=== PATIENT | female | born 1950 | race African-American/Black ===

== ENCOUNTER 2020-11-18 04:47 | Day surgery (SDC) | payer BC ==
[2020-11-15 09:38] VITALS: BMI 18.3
[2020-11-18] MEDS ORDERED: BUPIVACAINE HCL/PF 0.75% 10 ML VIAL NR ONE ×2 (09:19→09:20)
[2020-11-18] MEDS ORDERED: LIDOCAINE HCL 1% PRESERVATIVE FREE - 30ML VIAL NR ONE (09:25)
[2020-11-18 10:48] VITALS: BP 160/84; PULSE 75; TEMP 97.9
== END 2020-11-18 10:35 | disposition home or self-care (01) ==
LOC: EDSEX → JASU-SURG 04:47
PROVIDERS: ATTEND Pain Medicine Pain Medicine
PROC: BR15YZZ Fluoroscopy of Thoracic Facet Joint(s) using Other Contrast (ICD-10-PCS; 2020-11-18)
PROC: 3E0T3BZ Introduction of Anesthetic Agent into Peripheral Nerves and Plexi, Percutaneous Approach (ICD-10-PCS; principal; 2020-11-18 09:00)
DX: M47.814 Spondylosis without myelopathy or radiculopathy, thoracic region (principal)
CPT/HCPCS: 76000-TC-FY

== ENCOUNTER 2020-12-16 04:24 | Day surgery (SDC) | payer BC ==
[2020-12-14 13:56] VITALS: BMI 18.3
[2020-12-16] MEDS ORDERED: LIDOCAINE HCL/PF 1% SDV 5ML VIAL ONE (07:26)
[2020-12-16] MEDS ORDERED: BUPIVACAINE HCL/PF 0.75% 10 ML VIAL ONE (07:26)
[2020-12-16] MEDS ORDERED: BUPIVACAINE HCL/PF 0.75% 10 ML VIAL NR ONE (09:18)
[2020-12-16] MEDS ORDERED: IOHEXOL 180 MG/1 ML ML IJ ONE (09:18)
[2020-12-16 15:47] VITALS: BP 144/90; PULSE 83; TEMP 97.7
== END 2020-12-16 10:45 | disposition home or self-care (01) ==
LOC: JASU-SURG 04:24
PROVIDERS: ATTEND Pain Medicine Pain Medicine
PROC: BR15YZZ Fluoroscopy of Thoracic Facet Joint(s) using Other Contrast (ICD-10-PCS; 2020-12-16)
PROC: 3E0T3BZ Introduction of Anesthetic Agent into Peripheral Nerves and Plexi, Percutaneous Approach (ICD-10-PCS; principal; 2020-12-16 09:30)
DX: M47.814 Spondylosis without myelopathy or radiculopathy, thoracic region (principal)
CPT/HCPCS: 76000-TC-FY

== ENCOUNTER 2021-03-23 11:17 | Inpatient (IN) | payer BC ==
[2021-03-23] MEDS ORDERED: LACTATED RINGERS SOLUTION 1000 ML INFUS.BAG IV ONE (12:44)
[2021-03-23 13:12] LABS: BASO % 0.6 % (0-2.0); EOS % 1.8 % (0-4.5); HEMATOCRIT 35.8 % (32.4-45.2); HEMOGLOBIN 11.8 GM/dL (10.7-15.3); LYMPH % 23.6 % (8-40); MCH 28.3 pg (25.7-33.7); MCHC 32.8 g/dl (32.0-36.0); MEAN CELL VOLUME 86.2 fl (80-96); MEAN PLT VOLUME 7.6 fl (7.5-11.1); MONO % 7.3 % (3.8-10.2); NEUT % 66.7 % (42.8-82.8); PLATELET COUNT 208 10^3/uL (134-434); RBC 4.15 M/mm3 (3.60-5.2); RDW 14.7 % (11.6-15.6); WHITE BLOOD COUNT 5.6 K/mm3 (4.0-10.0)
[2021-03-23 13:34] LABS: ALBUMIN 3.1 g/dl (3.4-5.0); BLOOD UREA NITROGEN 11.3 mg/dL (7-18)
[2021-03-23 13:37] LABS: CREATININE 0.8 mg/dL (0.55-1.3)
[2021-03-23 13:40] LABS: BILIRUBIN,TOTAL 0.4 mg/dL (0.2-1); TOT PROT 6.5 g/dl (6.4-8.2)
[2021-03-23] MEDS: DEXTROSE 5%-NORMAL SALINE 1,000 ML IV SCH (17:06)
[2021-03-24 04:25] VITALS: BMI 17.5
[2021-03-24 10:44] LABS: BASO % 0.4 % (0-2.0); EOS % 2.3 % (0-4.5); HEMATOCRIT 32.7 % (32.4-45.2); MCH 29.4 pg (25.7-33.7); MCHC 33.7 g/dl (32.0-36.0); MEAN CELL VOLUME 87.3 fl (80-96); MEAN PLT VOLUME 7.9 fl (7.5-11.1); MONO % 6.7 % (3.8-10.2); NEUT % 72.6 % (42.8-82.8); PLATELET COUNT 212 10^3/uL (134-434); RBC 3.75 M/mm3 (3.60-5.2); RDW 14.7 % (11.6-15.6)
[2021-03-24 10:50] LABS: INR 1.05 (0.83-1.09); PROTHROMBIN TIME (PATIENT) 12.7 SEC (9.7-13.0)
[2021-03-24 11:22] LABS: ALBUMIN 2.6 g/dl (3.4-5.0); BLOOD UREA NITROGEN 7.1 mg/dL (7-18); CALCIUM 8.5 mg/dL (8.5-10.1); MAGNESIUM 2.2 mg/dL (1.8-2.4)
[2021-03-24 11:25] LABS: CREATININE 0.7 mg/dL (0.55-1.3); PHOSPHOROUS 3.3 mg/dL (2.5-4.9)
[2021-03-24 11:26] LABS: BILIRUBIN,TOTAL 0.7 mg/dL (0.2-1); TOT PROT 5.7 g/dl (6.4-8.2)
[2021-03-24] MEDS: DEXTROSE 5%-NORMAL SALINE 1,000 ML IV SCH (15:32)
[2021-03-24 18:36] VITALS: BP 129/88; PULSE 72; TEMP 97.4
[2021-03-25] MEDS ORDERED: ENOXAPARIN NA (PORCINE) 30 MG/0.3 ML DISP.SYRIN SQ SCH (10:00)
== END 2021-03-24 17:20 | disposition short-term general hospital (02) | DRG 381 ==
LOC: JER 11:17 → JERBED 14:12 → EDSEX 14:12 → J5S 22:40
PROVIDERS: ADMIT Internal Medicine; ATTEND Internal Medicine
PROC: 0DB58ZX Excision of Esophagus, Via Natural or Artificial Opening Endoscopic, Diagnostic (ICD-10-PCS; principal; 2021-03-24 12:40)
DX: K22.70 Barrett's esophagus without dysplasia (principal); R64 Cachexia; Z68.1 Body mass index [BMI] 19.9 or less, adult; K22.2 Esophageal obstruction; J45.909 Unspecified asthma, uncomplicated; R13.10 Dysphagia, unspecified; K44.9 Diaphragmatic hernia without obstruction or gangrene; K22.0 Achalasia of cardia
CPT/HCPCS: 36415; 71045-TC-FY; 80048; 80053; 83690; 83735; 84100; 84443; 85025; 85610; 85730; 86850; 86900; 86901; 88305-TC; 93005; 93010; 97116-GP; 97162-GP; 99285-25; C9803; U0003; U0005

== ENCOUNTER 2021-08-10 04:47 | Day surgery (SDC) | payer BC ==
[2021-08-09 11:07] VITALS: BMI 15.5
[2021-08-10] MEDS ORDERED: CEFAZOLIN 1 GM/D5W 1 GM/50 ML BAG ONE (13:08)
[2021-08-10] MEDS ORDERED: ceFAZolin SODIUM 1 GM VIAL IVPB ONE (13:13)
[2021-08-10 13:33] VITALS: TEMP 97.7
[2021-08-10 15:05] VITALS: BP 116/72; PULSE 92
== END 2021-08-10 14:35 | disposition home or self-care (01) ==
LOC: JASU-ENDO 04:47
PROVIDERS: ATTEND Internal Medicine Gastroenterology
PROC: 0D748ZZ Dilation of Esophagogastric Junction, Via Natural or Artificial Opening Endoscopic (ICD-10-PCS; 2021-08-10)
PROC: 0DB38ZX Excision of Lower Esophagus, Via Natural or Artificial Opening Endoscopic, Diagnostic (ICD-10-PCS; principal; 2021-08-10 12:45)
DX: K22.2 Esophageal obstruction (principal); K44.9 Diaphragmatic hernia without obstruction or gangrene
CPT/HCPCS: 88305-TC

== ENCOUNTER 2021-08-24 05:00 | Day surgery (SDC) | payer BC ==
[2021-08-22 13:50] VITALS: BMI 16.4
[2021-08-24 09:52] VITALS: TEMP 97.8
[2021-08-24 12:53] VITALS: BP 140/90; PULSE 67
== END 2021-08-24 10:45 | disposition home or self-care (01) ==
LOC: JASU-ENDO 05:00
PROVIDERS: ATTEND Internal Medicine Gastroenterology
PROC: 0DB38ZX Excision of Lower Esophagus, Via Natural or Artificial Opening Endoscopic, Diagnostic (ICD-10-PCS; 2021-08-24)
PROC: 0D738ZZ Dilation of Lower Esophagus, Via Natural or Artificial Opening Endoscopic (ICD-10-PCS; principal; 2021-08-24 09:30)
DX: K22.2 Esophageal obstruction (principal); K21.00 Gastro-esophageal reflux disease with esophagitis, without bleeding
CPT/HCPCS: 88305-TC; 88312-TC

== ENCOUNTER 2021-09-07 04:37 | Day surgery (SDC) | payer BC ==
[2021-09-05 15:45] VITALS: BMI 16.4
[2021-09-07 14:58] VITALS: TEMP 97.3
[2021-09-07 15:39] VITALS: BP 136/75; PULSE 79
== END 2021-09-07 16:00 | disposition home or self-care (01) ==
LOC: JASU-ENDO 04:37
PROVIDERS: ATTEND Internal Medicine Gastroenterology
PROC: 0D748ZZ Dilation of Esophagogastric Junction, Via Natural or Artificial Opening Endoscopic (ICD-10-PCS; principal; 2021-09-07 13:15)
DX: K22.2 Esophageal obstruction (principal); K44.9 Diaphragmatic hernia without obstruction or gangrene

== ENCOUNTER 2021-09-21 05:03 | Day surgery (SDC) | payer BC ==
[2021-09-21] MEDS ORDERED: LIDOCAINE VISCOUS 2% ORAL/TOP 15 ML UNIT-DOSE CUP ONE (11:30)
[2021-09-21 12:50] VITALS: BMI 18.5
[2021-09-21 13:37] VITALS: TEMP 97.3
[2021-09-21 14:17] VITALS: BP 154/77; PULSE 64
== END 2021-09-21 14:32 | disposition home or self-care (01) ==
LOC: JASU-ENDO 05:03
PROVIDERS: ATTEND Internal Medicine Gastroenterology
PROC: 0D728ZZ Dilation of Middle Esophagus, Via Natural or Artificial Opening Endoscopic (ICD-10-PCS; principal; 2021-09-21 13:30)
DX: K22.2 Esophageal obstruction (principal); K44.9 Diaphragmatic hernia without obstruction or gangrene

== ENCOUNTER 2021-10-19 04:34 | Day surgery (SDC) | payer BC ==
[2021-10-16 16:26] VITALS: BMI 18.5
[2021-10-19 13:08] VITALS: TEMP 97.5
[2021-10-19 14:03] VITALS: BP 152/83; PULSE 70
== END 2021-10-19 14:34 | disposition home or self-care (01) ==
LOC: JASU-ENDO 04:34
PROVIDERS: ATTEND Internal Medicine Gastroenterology
PROC: 0DB28ZX Excision of Middle Esophagus, Via Natural or Artificial Opening Endoscopic, Diagnostic (ICD-10-PCS; 2021-10-19)
PROC: 0D728ZZ Dilation of Middle Esophagus, Via Natural or Artificial Opening Endoscopic (ICD-10-PCS; principal; 2021-10-19 12:30)
DX: K22.2 Esophageal obstruction (principal); K22.10 Ulcer of esophagus without bleeding; K44.9 Diaphragmatic hernia without obstruction or gangrene
CPT/HCPCS: 88305-TC; 88312-TC

== ENCOUNTER 2021-12-21 04:22 | Day surgery (SDC) | payer BC ==
[2021-12-18 12:48] VITALS: BMI 18.5
[2021-12-21 10:17] VITALS: TEMP 98
[2021-12-21 11:05] VITALS: BP 140/84; PULSE 60
== END 2021-12-21 11:25 | disposition home or self-care (01) ==
LOC: JASU-ENDO 04:22
PROVIDERS: ATTEND Internal Medicine Gastroenterology
PROC: 0D758ZZ Dilation of Esophagus, Via Natural or Artificial Opening Endoscopic (ICD-10-PCS; principal; 2021-12-21 09:30)
DX: K22.2 Esophageal obstruction (principal); K44.9 Diaphragmatic hernia without obstruction or gangrene

== ENCOUNTER 2023-02-28 04:37 | Day surgery (SDC) | payer BC ==
[2023-02-22 10:18] VITALS: BMI 17.6
[2023-02-28 09:47] VITALS: TEMP 97.5
[2023-02-28 10:14] VITALS: PULSE 67
[2023-02-28 10:38] VITALS: BP 181/96; RESP 18
== END 2023-02-28 10:32 | disposition home or self-care (01) ==
LOC: JASU-ENDO 04:37
PROVIDERS: ATTEND Internal Medicine Gastroenterology
PROC: 0D748DZ Dilation of Esophagogastric Junction with Intraluminal Device, Via Natural or Artificial Opening Endoscopic (ICD-10-PCS; 2023-02-28)
PROC: 0DB48ZX Excision of Esophagogastric Junction, Via Natural or Artificial Opening Endoscopic, Diagnostic (ICD-10-PCS; principal; 2023-02-28 09:00)
DX: K22.2 Esophageal obstruction (principal); K21.00 Gastro-esophageal reflux disease with esophagitis, without bleeding; K44.9 Diaphragmatic hernia without obstruction or gangrene
CPT/HCPCS: 88305-TC

== ENCOUNTER 2024-02-13 04:34 | Day surgery (SDC) | payer BC, OTHER ==
[2024-02-06 14:59] VITALS: BMI 16.6
[2024-02-13 10:35] VITALS: TEMP 98
[2024-02-13 12:10] VITALS: BP 164/92; PULSE 62; RESP 17
== END 2024-02-13 11:34 | disposition home or self-care (01) ==
LOC: JASU-ENDO 04:34
PROVIDERS: ATTEND Internal Medicine Gastroenterology
PROC: 0D738ZZ Dilation of Lower Esophagus, Via Natural or Artificial Opening Endoscopic (ICD-10-PCS; principal; 2024-02-13 09:00)
DX: K22.2 Esophageal obstruction (principal); K22.70 Barrett's esophagus without dysplasia
CPT/HCPCS: 88305-TC; 88312-TC; 88342-TC

== ENCOUNTER 2024-04-02 04:35 | Day surgery (SDC) | payer BC, OTHER ==
[2024-03-26 09:59] VITALS: BMI 17.4
[2024-04-02 12:16] VITALS: TEMP 98.1
[2024-04-02 12:42] VITALS: RESP 16
[2024-04-02 13:11] VITALS: BP 153/97; PULSE 63
== END 2024-04-02 13:27 | disposition home or self-care (01) ==
LOC: JASU-ENDO 04:35
PROVIDERS: ATTEND Internal Medicine Gastroenterology
PROC: 0D758DZ Dilation of Esophagus with Intraluminal Device, Via Natural or Artificial Opening Endoscopic (ICD-10-PCS; principal; 2024-04-02 11:00)
DX: K22.2 Esophageal obstruction (principal)

== ENCOUNTER 2024-04-23 04:54 | Day surgery (SDC) | payer BC, OTHER ==
[2024-04-15 11:40] VITALS: BMI 17.4
[2024-04-23] MEDS: ALBUTEROL SO4 0.083% IH SOL 2.5 MG/3 ML VIAL.NEB. NEB ONE (08:54)
[2024-04-23] MEDS ORDERED: LIDOCAINE VISCOUS 2% ORAL/TOP 15 ML UNIT-DOSE CUP ONE (09:13)
[2024-04-23] MEDS ORDERED: MIDAZOLAM HCL 2 MG/2 ML SINGLE DOSE VIAL ONE (09:13)
[2024-04-23 10:14] VITALS: TEMP 97.7
[2024-04-23 10:35] VITALS: RESP 16
[2024-04-23 11:27] VITALS: BP 143/86; PULSE 70
== END 2024-04-23 11:06 | disposition home or self-care (01) ==
LOC: JASU-ENDO 04:54
PROVIDERS: ATTEND Internal Medicine Gastroenterology
PROC: 0D758DZ Dilation of Esophagus with Intraluminal Device, Via Natural or Artificial Opening Endoscopic (ICD-10-PCS; principal; 2024-04-23 09:00)
DX: K22.2 Esophageal obstruction (principal); R13.10 Dysphagia, unspecified; K22.70 Barrett's esophagus without dysplasia; R63.4 Abnormal weight loss; Z68.1 Body mass index [BMI] 19.9 or less, adult
CPT/HCPCS: 88305-TC; 94640

== ENCOUNTER 2024-05-21 05:47 | Day surgery (SDC) | payer BC, OTHER ==
[2024-05-20 12:02] VITALS: BMI 17.4
[2024-05-21 11:28] VITALS: TEMP 98.1
[2024-05-21 11:33] VITALS: BP 173/90; PULSE 74; RESP 16
== END 2024-05-21 12:20 | disposition home or self-care (01) ==
LOC: JASU-ENDO 05:47
PROVIDERS: ATTEND Internal Medicine Gastroenterology
PROC: 0D758ZZ Dilation of Esophagus, Via Natural or Artificial Opening Endoscopic (ICD-10-PCS; principal; 2024-05-21 10:30)
DX: K22.2 Esophageal obstruction (principal); K44.9 Diaphragmatic hernia without obstruction or gangrene

== ENCOUNTER 2024-09-26 21:05 | Inpatient (IN) | payer BC, OTHER ==
[2024-09-26] MEDS ORDERED: FAMOTIDINE 20 MG/50 ML IVPB 20 MG/50 ML MG IVPB ONE (22:19)
[2024-09-26] MEDS ORDERED: ACETAMINOPHEN INJECTION 100 ML ONE (22:23)
[2024-09-26] MEDS ORDERED: ONDANSETRON 4 MG/2 ML VIAL ONE (22:23)
[2024-09-26] MEDS: ACETAMINOPHEN 500 MG TABLET (FP) PO ONE (22:50)
[2024-09-26] MEDS: ACETAMINOPHEN 1000 MG/100 ML BAG IVPB ONE (22:50)
[2024-09-26] MEDS: ONDANSETRON 4 MG/2 ML VIAL IVPUSH ONE (22:51)
[2024-09-26 22:52] LABS: HEMATOCRIT 40.6 % (34.1-44.9); MCHC 29.6 g/dl (32.2-35.5); MEAN CELL VOLUME 85.3 fl (79.4-94.8); MEAN PLT VOLUME 10.1 fl (9.4-12.3); PLATELET COUNT 235 x10^3/uL (182-369); RDW 14.7 % (12.4-16.6)
[2024-09-26 22:59] LABS: INR 1.05 (0.83-1.09); PROTHROMBIN TIME (PATIENT) 11.6 SEC (9.7-13.0)
[2024-09-26 23:01] LABS: ACTIVATED PTT 26.1 SECONDS (25.2-36.5)
[2024-09-27 00:12] LABS: POTASSIUM 4.2 mmol/L (3.5-5.1)
[2024-09-27 00:15] LABS: ALBUMIN 3.9 g/dl (3.4-5.0); BLOOD UREA NITROGEN 12.2 mg/dL (7-18); CALCIUM 9.9 mg/dL (8.5-10.1)
[2024-09-27 00:18] LABS: CREATININE 0.9 mg/dL (0.55-1.3); PHOSPHOROUS 3.7 mg/dL (2.5-4.9)
[2024-09-27 00:19] LABS: BILIRUBIN,TOTAL 0.7 mg/dL (0.2-1); TOT PROT 7.9 g/dl (6.4-8.2)
[2024-09-27 00:21] LABS: LACTIC ACID 3.7 mmol/L (0.4-2.0)
[2024-09-27 00:23] LABS: N-TERMINAL BNP 95.5 pg/ml (5-450)
[2024-09-27] MEDS: SODIUM CHLORIDE 0.9% 500 ML INFUS.BAG IV ONE ×2 (01:24→04:25)
[2024-09-27] MEDS ORDERED: METOCLOPRAMIDE HCL INJECTION 10 MG/2 ML VIAL ONE (02:25)
[2024-09-27] MEDS: METOCLOPRAMIDE HCL INJECTION 10 MG/2 ML VIAL IVPB ONE (02:28)
[2024-09-27 03:36] LABS: MAGNESIUM 2.1 mg/dL (1.8-2.4)
[2024-09-27 03:52] LABS: LACTIC ACID 3.8 mmol/L (0.4-2.0)
[2024-09-27] MEDS ORDERED: ONDANSETRON 4 MG/2 ML VIAL IVPUSH PRN (04:46)
[2024-09-27] MEDS ORDERED: MORPHINE SULFATE 2 MG/ML SYRINGE IVPUSH PRN (04:52)
[2024-09-27 05:35] LABS: EPI CELLS 17 /uL (0-25.1); HYALINE CASTS 0 /uL (0-3.1); PH,URINE 8.5 (5.0-8.0); URINE APPEARANCE CLEAR; URINE BACTERIA 212 /uL (0-1359); URINE BILIRUBIN NEGATIVE (NEGATIVE); URINE COLOR YELLOW; URINE GLUCOSE (UA) TRACE (NEGATIVE); URINE KETONE NEGATIVE (NEGATIVE); URINE LEUK ESTERASE NEGATIVE (NEGATIVE); URINE NITRITE NEGATIVE (NEGATIVE); URINE PROTEIN TRACE (NEGATIVE); URINE RBC 77 /uL (0-23.9); URINE WBC 6 /uL (0-25.8)
[2024-09-27] MEDS: HEPARIN NA (PORCINE) 5,000 UNITS/ML 1ML VIAL SQ SCH ×2 (06:11→14:00)
[2024-09-27] MEDS: DEXTROSE 5%-0.45% SALINE 1,000 ML IV SCH (06:25)
[2024-09-27] MEDS ORDERED: PIPERACILLIN/TAZOB 3.375 GM 3.375 GM in DEXTROSE 5%-WATER - 50 ML IVPB SCH (07:30)
[2024-09-27] MEDS: LACTATED RINGERS SOLUTION 1,000 ML/1,000 ML INFUS.BAG IV SCH (07:58)
[2024-09-27] MEDS: PIPERACILLIN/TAZOB 3.375 GM 3.375 GM in DEXTROSE 5%-WATER - 50 ML IVPB SCH ×2 (08:07→17:23)
[2024-09-27] MEDS: PIPERACILLIN/TAZOB 4.5 GM 4.5 GM in DEXTROSE 5%-WATER 100 ML IVPB SCH ×2 (08:07→15:41)
[2024-09-27] MEDS ORDERED: PIPERACILLIN/TAZOB 4.5 GM 4.5 GM/100 ML BAG IVPB SCH (08:15)
[2024-09-27] MEDS: PANTOPRAZOLE SODIUM 40 MG VIAL IVPUSH SCH ×2 (09:21→21:58)
[2024-09-27] MEDS ORDERED: cefOXitin SODIUM 2 GM VIAL (RESTRICTED TO ID) IVPB ONE (10:59)
[2024-09-27] MEDS ORDERED: HEPARIN NA (PORCINE) 5,000 UNITS/ML 1ML VIAL ONE (11:00)
[2024-09-27] MEDS ORDERED: LIDOCAINE HCL/PF 2% SDV 5ML VIAL ONE (11:07)
[2024-09-27] MEDS ORDERED: MIDAZOLAM HCL 2 MG/2 ML SINGLE DOSE VIAL ONE (11:09)
[2024-09-27] MEDS ORDERED: PROPOFOL 20 ML ONE (11:09)
[2024-09-27 11:10] LABS: MAGNESIUM 2.3 mg/dL (1.8-2.4)
[2024-09-27] MEDS ORDERED: ROCURONIUM BROMIDE 50 MG/5 ML SYRINGE ONE (11:54)
[2024-09-27] MEDS ORDERED: ceFAZolin SODIUM 1 GM VIAL ONE (11:55)
[2024-09-27] MEDS: BUPIVACAINE HCL/PF 2.5 MG/ML - 30 ML VIAL IJ ONE ×2 (12:10)
[2024-09-27] MEDS: cefOXitin SODIUM 1 GM VIAL (RESTRICTED TO ID) IVPB ONE (12:24)
[2024-09-27] MEDS ORDERED: FAMOTIDINE 20 MG/50 ML IVPB 20 MG/50 ML MG IVPB ONE ×2 (12:58→14:33)
[2024-09-27] MEDS ORDERED: SUGAMMADEX SODIUM 200 MG/2 ML VIAL ONE (13:09)
[2024-09-27] MEDS ORDERED: SENNOSIDES/DOCUSATE COMBO (SENNA PLUS) TABLET (UD) PO PRN (13:32)
[2024-09-27] MEDS: FAMOTIDINE 20 MG/50 ML IVPB 20 MG/50 ML MG IVPB ONE (14:35)
[2024-09-27] MEDS: SODIUM CHLORIDE 1,000 ML IV SCH (14:36)
[2024-09-27] MEDS: LACTATED RINGERS SOLUTION 1,000 ML IV SCH (15:43)
[2024-09-27] MEDS ORDERED: ACETAMINOPHEN 325 MG TABLET (FP) PO PRN (17:00)
[2024-09-27] MEDS ORDERED: SODIUM CHLORIDE 1,000 ML IV SCH (18:28)
[2024-09-27] MEDS ORDERED: DEXTROSE 5%-NORMAL SALINE 1,000 ML IV SCH (18:30)
[2024-09-27] MEDS: DEXTROSE 5%-NORMAL SALINE 1,000 ML IV SCH (19:28)
[2024-09-27] MEDS ORDERED: SULFAMETHOXAZOLE/TRIMETHOPRIM 400MG/80MG S.S. TABLET PO SCH (20:00)
[2024-09-27] MEDS: ACETAMINOPHEN 650 MG/20.3 ML ORAL SOLUTION (CUPS) PO PRN (21:56)
[2024-09-27] MEDS: POLYETHYLENE GLYCOL (HEALTHYLAX) 3350 17 GM PACKET PO SCH (21:57)
[2024-09-28 08:40] LABS: ABSOLUTE IMMATURE GRANULOCYTES 0.03 x10^3/uL (0.0-0.031); BASOPHILS # 0.01 x10^3/uL (0.01-0.08); EOSINOPHIL % 0.3 % (0.7-5.8); EOSINOPHILS # 0.02 x10^3/uL (0.04-0.36); HEMATOCRIT 31.6 % (34.1-44.9); HEMOGLOBIN 9.2 g/dL (11.2-15.7); MCHC 29.1 g/dl (32.2-35.5); MEAN CELL VOLUME 86.1 fl (79.4-94.8); MEAN PLT VOLUME 10.1 fl (9.4-12.3); MONOCYTE % 6.5 % (4.7-12.5); PLATELET COUNT 188 x10^3/uL (182-369); RDW 14.5 % (12.4-16.6)
[2024-09-28 08:46] LABS: INR 1.2 (0.83-1.09); PROTHROMBIN TIME (PATIENT) 13.2 SEC (9.7-13.0)
[2024-09-28 09:37] LABS: POTASSIUM 3.2 mmol/L (3.5-5.1)
[2024-09-28 09:50] LABS: BILIRUBIN,TOTAL 0.5 mg/dL (0.2-1)
[2024-09-28 10:02] LABS: CALCIUM 7.9 mg/dL (8.5-10.1)
[2024-09-28 10:03] LABS: ALBUMIN 2.6 g/dl (3.4-5.0); BLOOD UREA NITROGEN 9.8 mg/dL (7-18)
[2024-09-28 10:07] LABS: CREATININE 0.7 mg/dL (0.55-1.3)
[2024-09-28 10:08] LABS: TOT PROT 5.1 g/dl (6.4-8.2)
[2024-09-28] MEDS: POTASSIUM CHLORIDE TABS 20 MEQ TABLET.ER (FP) PO SCH (10:35)
[2024-09-28] MEDS: PSYLLIUM 5.85 GM PACKET PO SCH (10:36)
[2024-09-28] MEDS: traMADol HCL 50 MG TABLET PO PRN (15:08)
[2024-09-28] MEDS: POLYETHYLENE GLYCOL (HEALTHYLAX) 3350 17 GM PACKET PO SCH (21:44)
[2024-09-29] MEDS: KCL 10 MEQ IVPB 10 MEQ/100 ML INFUS.BAG IVPB SCH (11:01)
[2024-09-29 11:04] LABS: CALCIUM 8.1 mg/dL (8.5-10.1); POTASSIUM 4.2 mmol/L (3.5-5.1)
[2024-09-29 11:05] LABS: BLOOD UREA NITROGEN 5.9 mg/dL (7-18); MAGNESIUM 1.9 mg/dL (1.8-2.4)
[2024-09-29 11:08] LABS: CREATININE 0.6 mg/dL (0.55-1.3)
[2024-09-29 12:40] LABS: ABSOLUTE IMMATURE GRANULOCYTES 0.02 x10^3/uL (0.0-0.031); BASOPHILS # 0.01 x10^3/uL (0.01-0.08); EOSINOPHIL % 0.8 % (0.7-5.8); EOSINOPHILS # 0.05 x10^3/uL (0.04-0.36); HEMATOCRIT 31.8 % (34.1-44.9); HEMOGLOBIN 9.5 g/dL (11.2-15.7); MCHC 29.9 g/dl (32.2-35.5); MEAN CELL VOLUME 84.8 fl (79.4-94.8); MEAN PLT VOLUME 10.1 fl (9.4-12.3); MONOCYTE # 0.39 x10^3/uL (0.24-0.86); MONOCYTE % 6.4 % (4.7-12.5); PLATELET COUNT 212 x10^3/uL (182-369); RDW 14.6 % (12.4-16.6)
[2024-09-29] MEDS: IRON SUCROSE INJECTION 200 MG in SODIUM CHLORIDE 100 ML IVPB ONE (15:37)
[2024-09-29] MEDS: POLYETHYLENE GLYCOL (HEALTHYLAX) 3350 17 GM PACKET PO SCH (15:38)
[2024-09-29] MEDS: PIPERACILLIN/TAZOB 3.375 GM 3.375 GM in DEXTROSE 5%-WATER - 50 ML IVPB SCH (15:41)
[2024-09-29] MEDS: NAPH,MB-DB/K PH,MBDB POWDER PACKET PO SCH (23:00)
[2024-09-30 09:17] LABS: ABSOLUTE IMMATURE GRANULOCYTES 0.01 x10^3/uL (0.0-0.031); BASOPHILS # 0.02 x10^3/uL (0.01-0.08); EOSINOPHIL % 2.2 % (0.7-5.8); EOSINOPHILS # 0.15 x10^3/uL (0.04-0.36); HEMATOCRIT 32.7 % (34.1-44.9); HEMOGLOBIN 9.8 g/dL (11.2-15.7); MEAN CELL VOLUME 86.3 fl (79.4-94.8); MONOCYTE # 0.42 x10^3/uL (0.24-0.86); MONOCYTE % 6.3 % (4.7-12.5); RDW 14.7 % (12.4-16.6)
[2024-09-30 09:33] LABS: POTASSIUM 4.4 mmol/L (3.5-5.1)
[2024-09-30 09:38] LABS: BLOOD UREA NITROGEN 6.4 mg/dL (7-18); CALCIUM 8.1 mg/dL (8.5-10.1); MAGNESIUM 1.9 mg/dL (1.8-2.4)
[2024-09-30 09:40] LABS: CREATININE 0.6 mg/dL (0.55-1.3)
[2024-09-30 09:41] LABS: PHOSPHOROUS 2.9 mg/dL (2.5-4.9)
[2024-09-30] MEDS ORDERED: amLODIPine BESYLATE 2.5 MG TABLET (FP) PO SCH (10:00)
[2024-09-30] MEDS: PANTOPRAZOLE 40 MG TABLET PO SCH (10:14)
[2024-09-30] MEDS: amLODIPine BESYLATE 2.5 MG TABLET (FP) PO ONE ×2 (14:00→17:22)
[2024-09-30 18:18] LABS: MEAN PLT VOLUME 10.9 fl (9.4-12.3); PLATELET COUNT 225 x10^3/uL (182-369)
[2024-09-30] MEDS: ONDANSETRON 4 MG/2 ML VIAL IVPUSH PRN (21:59)
[2024-10-01 09:13] LABS: ABSOLUTE IMMATURE GRANULOCYTES 0.05 x10^3/uL (0.0-0.031); BASOPHILS # 0.01 x10^3/uL (0.01-0.08); EOSINOPHIL % 0.1 % (0.7-5.8); EOSINOPHILS # 0.01 x10^3/uL (0.04-0.36); HEMATOCRIT 30.2 % (34.1-44.9); HEMOGLOBIN 9.1 g/dL (11.2-15.7); MCHC 30.1 g/dl (32.2-35.5); MEAN CELL VOLUME 83.9 fl (79.4-94.8); MEAN PLT VOLUME 10.2 fl (9.4-12.3); MONOCYTE # 0.33 x10^3/uL (0.24-0.86); MONOCYTE % 4.3 % (4.7-12.5); PLATELET COUNT 241 x10^3/uL (182-369); RDW 14.9 % (12.4-16.6)
[2024-10-01 09:24] LABS: INR 1.15 (0.83-1.09); PROTHROMBIN TIME (PATIENT) 12.5 SEC (9.7-13.0)
[2024-10-01 09:44] LABS: POTASSIUM 3.3 mmol/L (3.5-5.1)
[2024-10-01] MEDS: amLODIPine BESYLATE 5 MG TABLET (FP) PO SCH (10:06)
[2024-10-01 10:15] LABS: BLOOD UREA NITROGEN 7.3 mg/dL (7-18); CALCIUM 8.6 mg/dL (8.5-10.1); MAGNESIUM 2.3 mg/dL (1.8-2.4)
[2024-10-01 10:16] LABS: ALBUMIN 2.6 g/dl (3.4-5.0)
[2024-10-01 10:18] LABS: CREATININE 0.4 mg/dL (0.55-1.3)
[2024-10-01 10:19] LABS: PHOSPHOROUS 2.5 mg/dL (2.5-4.9)
[2024-10-01 10:20] LABS: BILIRUBIN,TOTAL 0.4 mg/dL (0.2-1); TOT PROT 5.3 g/dl (6.4-8.2)
[2024-10-01] MEDS: KCL 10 MEQ IVPB 10 MEQ/100 ML INFUS.BAG IVPB SCH (10:47)
[2024-10-01] MEDS: PANTOPRAZOLE SODIUM 40 MG VIAL IVPUSH SCH (11:58)
[2024-10-02 11:43] LABS: ABSOLUTE IMMATURE GRANULOCYTES 0.02 x10^3/uL (0.0-0.031); BASOPHILS # 0.01 x10^3/uL (0.01-0.08); EOSINOPHILS # 0.07 x10^3/uL (0.04-0.36); HEMATOCRIT 29.5 % (34.1-44.9); HEMOGLOBIN 8.9 g/dL (11.2-15.7); MCHC 30.2 g/dl (32.2-35.5); MEAN CELL VOLUME 84.3 fl (79.4-94.8); MEAN PLT VOLUME 10.4 fl (9.4-12.3); MONOCYTE # 0.33 x10^3/uL (0.24-0.86); MONOCYTE % 4.7 % (4.7-12.5); PLATELET COUNT 249 x10^3/uL (182-369); RDW 15.4 % (12.4-16.6)
[2024-10-02 12:02] LABS: POTASSIUM 3.4 mmol/L (3.5-5.1)
[2024-10-02 12:19] LABS: CALCIUM 8.2 mg/dL (8.5-10.1)
[2024-10-02 12:20] LABS: BLOOD UREA NITROGEN 6.5 mg/dL (7-18); MAGNESIUM 2.2 mg/dL (1.8-2.4)
[2024-10-02 12:23] LABS: CREATININE 0.4 mg/dL (0.55-1.3); PHOSPHOROUS 2.1 mg/dL (2.5-4.9)
[2024-10-02] MEDS: KCL 10 MEQ IVPB 10 MEQ/100 ML INFUS.BAG IVPB SCH (12:48)
[2024-10-02] MEDS: AMINO ACIDS 4.25%/D5W 1,000 ML IV SCH (15:33)
[2024-10-02] MEDS: PEG 3350/NA SULF BICARB CL/KCL 4000 ML SOLN.RECON PO ONE (15:33)
[2024-10-02 15:38] VITALS: BMI 17.7
[2024-10-02] MEDS: SUCRALFATE 1 GM/10 ML UNIT DOSE CUPS PO SCH (17:58)
[2024-10-02] MEDS: PANTOPRAZOLE SODIUM 40 MG VIAL IVPUSH SCH (21:45)
[2024-10-03 09:24] LABS: ABSOLUTE IMMATURE GRANULOCYTES 0.04 x10^3/uL (0.0-0.031); EOSINOPHIL % 2.1 % (0.7-5.8); EOSINOPHILS # 0.12 x10^3/uL (0.04-0.36); HEMATOCRIT 28.9 % (34.1-44.9); HEMOGLOBIN 8.6 g/dL (11.2-15.7); MCHC 29.8 g/dl (32.2-35.5); MEAN CELL VOLUME 85.5 fl (79.4-94.8); MEAN PLT VOLUME 10.1 fl (9.4-12.3); MONOCYTE # 0.45 x10^3/uL (0.24-0.86); MONOCYTE % 7.9 % (4.7-12.5); PLATELET COUNT 245 x10^3/uL (182-369); RDW 15.6 % (12.4-16.6)
[2024-10-03 09:41] LABS: POTASSIUM 3.3 mmol/L (3.5-5.1)
[2024-10-03 09:51] LABS: CALCIUM 8.1 mg/dL (8.5-10.1)
[2024-10-03 09:52] LABS: BLOOD UREA NITROGEN 8.9 mg/dL (7-18); MAGNESIUM 2.1 mg/dL (1.8-2.4)
[2024-10-03 09:55] LABS: CREATININE 0.4 mg/dL (0.55-1.3); PHOSPHOROUS 2.3 mg/dL (2.5-4.9)
[2024-10-03] MEDS: BISACODYL 10 MG SUPP.RECT PR ONE (15:02)
[2024-10-03] MEDS: PEG 3350/NA SULF BICARB CL/KCL 4000 ML SOLN.RECON PO ONE ×2 (15:03→15:06)
[2024-10-04 08:43] LABS: ABSOLUTE IMMATURE GRANULOCYTES 0.04 x10^3/uL (0.0-0.031); BASOPHILS # 0.02 x10^3/uL (0.01-0.08); EOSINOPHIL % 1.9 % (0.7-5.8); EOSINOPHILS # 0.13 x10^3/uL (0.04-0.36); HEMATOCRIT 30.8 % (34.1-44.9); HEMOGLOBIN 9.2 g/dL (11.2-15.7); MCHC 29.9 g/dl (32.2-35.5); MEAN CELL VOLUME 85.8 fl (79.4-94.8); MEAN PLT VOLUME 9.8 fl (9.4-12.3); MONOCYTE # 0.59 x10^3/uL (0.24-0.86); MONOCYTE % 8.7 % (4.7-12.5); PLATELET COUNT 248 x10^3/uL (182-369)
[2024-10-04 09:02] LABS: POTASSIUM 3.1 mmol/L (3.5-5.1)
[2024-10-04 09:04] LABS: CALCIUM 8.1 mg/dL (8.5-10.1)
[2024-10-04 09:08] LABS: CREATININE 0.5 mg/dL (0.55-1.3)
[2024-10-04 09:09] LABS: PHOSPHOROUS 2.5 mg/dL (2.5-4.9)
[2024-10-04] MEDS: KCL 10 MEQ IVPB 10 MEQ/100 ML INFUS.BAG IVPB SCH (11:00)
[2024-10-04] MEDS: ALBUTEROL SO4 2.5/IPRATROPIUM 0.5 INH SOL 3 ML VIAL.NEB. NEB ONE (11:15)
[2024-10-04] MEDS: AMINO ACIDS 4.25%/D5W 1,000 ML IV SCH ×2 (13:01→20:42)
[2024-10-04] MEDS: BISACODYL 10 MG SUPP.RECT PR SCH (13:02)
[2024-10-04] MEDS ORDERED: ALBUTEROL SO4 2.5/IPRATROPIUM 0.5 INH SOL 3 ML VIAL.NEB. NEB PRN (13:53)
[2024-10-04] MEDS: SUCRALFATE 1 GM/10 ML UNIT DOSE CUPS PO SCH (17:00)
[2024-10-04] MEDS: FUROSEMIDE 40 MG TABLET (FP) PO ONE (20:52)
[2024-10-04] MEDS: HEPARIN NA (PORCINE) 5,000 UNITS/ML 1ML VIAL SQ SCH (21:20)
[2024-10-05 07:50] LABS: ABSOLUTE IMMATURE GRANULOCYTES 0.05 x10^3/uL (0.0-0.031); BASOPHILS # 0.01 x10^3/uL (0.01-0.08); EOSINOPHIL % 1.6 % (0.7-5.8); EOSINOPHILS # 0.12 x10^3/uL (0.04-0.36); HEMATOCRIT 29.5 % (34.1-44.9); HEMOGLOBIN 8.6 g/dL (11.2-15.7); MCHC 29.2 g/dl (32.2-35.5); MEAN PLT VOLUME 9.5 fl (9.4-12.3); MONOCYTE # 0.69 x10^3/uL (0.24-0.86); MONOCYTE % 9.2 % (4.7-12.5); PLATELET COUNT 210 x10^3/uL (182-369); RDW 16.8 % (12.4-16.6)
[2024-10-05 08:13] LABS: POTASSIUM 3.3 mmol/L (3.5-5.1)
[2024-10-05 08:20] LABS: CALCIUM 8.1 mg/dL (8.5-10.1)
[2024-10-05 08:21] LABS: ALBUMIN 2.4 g/dl (3.4-5.0); BLOOD UREA NITROGEN 13.2 mg/dL (7-18); MAGNESIUM 2.1 mg/dL (1.8-2.4)
[2024-10-05 08:24] LABS: CREATININE 0.5 mg/dL (0.55-1.3); PHOSPHOROUS 2.4 mg/dL (2.5-4.9)
[2024-10-05 08:25] LABS: BILIRUBIN,TOTAL 0.6 mg/dL (0.2-1)
[2024-10-05] MEDS: POTASSIUM CHLORIDE ORAL LIQUID 20 MEQ/15 ML PO ONE (09:25)
[2024-10-05] MEDS: MULTIVITAMINS (DAILY MVI) TABLET (FP) PO SCH (09:25)
[2024-10-05] MEDS: FUROSEMIDE 20 MG TABLET (FP) PO SCH (15:38)
[2024-10-06 08:21] LABS: ABSOLUTE IMMATURE GRANULOCYTES 0.04 x10^3/uL (0.0-0.031); BASOPHILS # 0.01 x10^3/uL (0.01-0.08); EOSINOPHIL % 1.7 % (0.7-5.8); HEMATOCRIT 29.5 % (34.1-44.9); HEMOGLOBIN 8.8 g/dL (11.2-15.7); MCHC 29.8 g/dl (32.2-35.5); MEAN PLT VOLUME 10.1 fl (9.4-12.3); MONOCYTE # 0.51 x10^3/uL (0.24-0.86); MONOCYTE % 8.5 % (4.7-12.5); PLATELET COUNT 239 x10^3/uL (182-369); RDW 17.2 % (12.4-16.6)
[2024-10-06 08:42] LABS: POTASSIUM 3.6 mmol/L (3.5-5.1)
[2024-10-06 08:47] LABS: ALBUMIN 2.5 g/dl (3.4-5.0); BLOOD UREA NITROGEN 16.7 mg/dL (7-18); CALCIUM 8.3 mg/dL (8.5-10.1); MAGNESIUM 1.9 mg/dL (1.8-2.4)
[2024-10-06 08:50] LABS: CREATININE 0.6 mg/dL (0.55-1.3)
[2024-10-06 08:51] LABS: PHOSPHOROUS 2.7 mg/dL (2.5-4.9)
[2024-10-06 08:52] LABS: BILIRUBIN,TOTAL 0.6 mg/dL (0.2-1); TOT PROT 5.2 g/dl (6.4-8.2)
[2024-10-07 08:27] LABS: BASOPHILS # 0.01 x10^3/uL (0.01-0.08); MEAN CELL VOLUME 87.2 fl (79.4-94.8); MONOCYTE # 0.46 x10^3/uL (0.24-0.86)
[2024-10-07 08:33] LABS: ABSOLUTE IMMATURE GRANULOCYTES 0.11 x10^3/uL (0.0-0.031); EOSINOPHIL % 2.4 % (0.7-5.8); EOSINOPHILS # 0.14 x10^3/uL (0.04-0.36); HEMATOCRIT 28.6 % (34.1-44.9); HEMOGLOBIN 8.4 g/dL (11.2-15.7); MCHC 29.4 g/dl (32.2-35.5); MEAN PLT VOLUME 10.1 fl (9.4-12.3); MONOCYTE % 7.8 % (4.7-12.5); PLATELET COUNT 208 x10^3/uL (182-369); RDW 17.3 % (12.4-16.6)
[2024-10-07 08:37] LABS: INR 1.17 (0.83-1.09); PROTHROMBIN TIME (PATIENT) 12.7 SEC (9.7-13.0)
[2024-10-07 08:48] LABS: POTASSIUM 3.4 mmol/L (3.5-5.1)
[2024-10-07 08:50] LABS: BLOOD UREA NITROGEN 16.3 mg/dL (7-18)
[2024-10-07 08:51] LABS: ALBUMIN 2.4 g/dl (3.4-5.0); MAGNESIUM 1.9 mg/dL (1.8-2.4)
[2024-10-07 08:54] LABS: CREATININE 0.6 mg/dL (0.55-1.3); PHOSPHOROUS 3.1 mg/dL (2.5-4.9)
[2024-10-07 08:55] LABS: BILIRUBIN,TOTAL 0.5 mg/dL (0.2-1)
[2024-10-07] MEDS: MAGNESIUM OXIDE 400 MG TABLET (FP) PO ONE (11:40)
[2024-10-07] MEDS: POTASSIUM CHLORIDE ORAL LIQUID 20 MEQ/15 ML PO ONE (11:41)
[2024-10-07] MEDS: SUCRALFATE 1 GM/10 ML UNIT DOSE CUPS PO SCH (16:06)
[2024-10-07] MEDS: PANTOPRAZOLE 40 MG TABLET PO SCH (22:11)
[2024-10-08 09:49] VITALS: RESP 20
[2024-10-08] MEDS: POTASSIUM CHLORIDE ORAL LIQUID 20 MEQ/15 ML PO ONE (10:03)
[2024-10-08 14:10] VITALS: BP 119/70; PULSE 78; TEMP 97.6
== END 2024-10-08 15:43 | DRG 350 ==
LOC: JER 21:05 → JERBED 23:44 → J4W 09-27 06:46 → J8W 09-27 14:59
PROVIDERS: ADMIT Hospitalist; ATTEND Nurse Practitioner Acute Care
PROC: 0YU50JZ Supplement Right Inguinal Region with Synthetic Substitute, Open Approach (ICD-10-PCS; principal; 2024-09-27 11:00)
PROC: 0DB58ZX Excision of Esophagus, Via Natural or Artificial Opening Endoscopic, Diagnostic (ICD-10-PCS; 2024-10-02)
PROC: 0D758ZZ Dilation of Esophagus, Via Natural or Artificial Opening Endoscopic (ICD-10-PCS; 2024-10-07)
DX: K40.30 Unilateral inguinal hernia, with obstruction, without gangrene, not specified as recurrent (principal); E43 Unspecified severe protein-calorie malnutrition; E87.20 Acidosis, unspecified; Z68.1 Body mass index [BMI] 19.9 or less, adult; K46.0 Unspecified abdominal hernia with obstruction, without gangrene; K44.9 Diaphragmatic hernia without obstruction or gangrene; R19.00 Intra-abdominal and pelvic swelling, mass and lump, unspecified site; K59.00 Constipation, unspecified; D72.829 Elevated white blood cell count, unspecified; R82.71 Bacteriuria; R11.2 Nausea with vomiting, unspecified; K22.2 Esophageal obstruction; R13.10 Dysphagia, unspecified; K20.90 Esophagitis, unspecified without bleeding
CPT/HCPCS: 0241U-QW; 36415; 70450-TC; 71045-TC-FY; 72196-TC; 74018-TC-FY; 74177-TC; 74230-TC-FY; 80048; 80053; 81003; 82728; 82962; 83036; 83540; 83550; 83605; 83690; 83735; 83880; 84100; 84132; 84484; 85025; 85610; 85730; 86850; 86900; 86901; 87070; 87075; 87086; 87205; 87635; 88305-TC; 88312-TC; 88342-TC; 92611-GN; 93005; 93010; 94010; 94640; 94760; 97116-GP; 97161-GP; 99285-25; C1781; J0131; J1644; J1756; Q9967

== ENCOUNTER 2024-11-09 01:59 | Inpatient (IN) | payer BC, OTHER ==
[2024-11-09 03:08] LABS: ABSOLUTE IMMATURE GRANULOCYTES 0.03 x10^3/uL (0.0-0.031); EOSINOPHIL % 0.1 % (0.7-5.8); EOSINOPHILS # 0.01 x10^3/uL (0.04-0.36); HEMATOCRIT 13.9 % (34.1-44.9); HEMOGLOBIN 3.8 g/dL (11.2-15.7); MCHC 27.3 g/dl (32.2-35.5); MEAN CELL VOLUME 92.7 fl (79.4-94.8); MEAN PLT VOLUME 10.1 fl (9.4-12.3); MONOCYTE # 0.55 x10^3/uL (0.24-0.86); MONOCYTE % 6.1 % (4.7-12.5); PLATELET COUNT 376 x10^3/uL (182-369); RDW 17.6 % (12.4-16.6)
[2024-11-09 03:25] LABS: POTASSIUM 3.6 mmol/L (3.5-5.1)
[2024-11-09 03:27] LABS: CALCIUM 8.7 mg/dL (8.5-10.1)
[2024-11-09 03:28] LABS: BLOOD UREA NITROGEN 17.7 mg/dL (7-18)
[2024-11-09 03:30] LABS: CREATININE 0.5 mg/dL (0.55-1.3)
[2024-11-09 03:32] LABS: BILIRUBIN,TOTAL 0.2 mg/dL (0.2-1); TOT PROT 4.5 g/dl (6.4-8.2)
[2024-11-09] MEDS ORDERED: PANTOPRAZOLE SODIUM 40 MG VIAL ONE (04:23)
[2024-11-09] MEDS: PANTOPRAZOLE SODIUM 40 MG VIAL IVPUSH ONE (04:31)
[2024-11-09] MEDS: D5-1/2NS+20 MEQ KCL - 20 MEQ/1,000 ML INFUS.BAG IV SCH (11:17)
[2024-11-09] MEDS: amLODIPine BESYLATE 5 MG TABLET (FP) PO SCH (11:17)
[2024-11-09] MEDS: ALBUTEROL SO4 2.5/IPRATROPIUM 0.5 INH SOL 3 ML VIAL.NEB. NEB SCH (12:04)
[2024-11-09 12:32] LABS: ABSOLUTE IMMATURE GRANULOCYTES 0.05 x10^3/uL (0.0-0.031); EOSINOPHIL % 0.6 % (0.7-5.8); EOSINOPHILS # 0.04 x10^3/uL (0.04-0.36); HEMATOCRIT 26.4 % (34.1-44.9); HEMOGLOBIN 8.2 g/dL (11.2-15.7); MCHC 31.1 g/dl (32.2-35.5); MEAN PLT VOLUME 9.5 fl (9.4-12.3); MONOCYTE # 0.44 x10^3/uL (0.24-0.86); MONOCYTE % 6.2 % (4.7-12.5); PLATELET COUNT 331 x10^3/uL (182-369); RDW 17.2 % (12.4-16.6)
[2024-11-09] MEDS: BISACODYL 5 MG TABLET.DR (FP) PO ONE (15:43)
[2024-11-09 16:16] VITALS: BMI 19.1
[2024-11-09] MEDS: PEG 3350/NA SULF BICARB CL/KCL 4000 ML SOLN.RECON PO ONE (17:41)
[2024-11-09] MEDS: PANTOPRAZOLE SODIUM 40 MG VIAL IVPUSH SCH (21:22)
[2024-11-10 08:09] LABS: ABSOLUTE IMMATURE GRANULOCYTES 0.03 x10^3/uL (0.0-0.031); EOSINOPHIL % 1.1 % (0.7-5.8); EOSINOPHILS # 0.05 x10^3/uL (0.04-0.36); HEMATOCRIT 25.7 % (34.1-44.9); MCHC 31.1 g/dl (32.2-35.5); MEAN CELL VOLUME 85.7 fl (79.4-94.8); MEAN PLT VOLUME 9.8 fl (9.4-12.3); MONOCYTE # 0.37 x10^3/uL (0.24-0.86); MONOCYTE % 8.3 % (4.7-12.5); PLATELET COUNT 304 x10^3/uL (182-369); RDW 17.7 % (12.4-16.6)
[2024-11-10 08:42] LABS: INR 1.18 (0.83-1.09)
[2024-11-10 08:44] LABS: POTASSIUM 3.1 mmol/L (3.5-5.1)
[2024-11-10 08:55] LABS: BILIRUBIN,TOTAL 0.4 mg/dL (0.2-1)
[2024-11-10 09:03] LABS: BLOOD UREA NITROGEN 9.9 mg/dL (7-18); CALCIUM 8.6 mg/dL (8.5-10.1)
[2024-11-10 09:06] LABS: CREATININE 0.3 mg/dL (0.55-1.3)
[2024-11-10 09:08] LABS: TOT PROT 4.5 g/dl (6.4-8.2)
[2024-11-10] MEDS ORDERED: PANTOPRAZOLE SODIUM 40 MG VIAL IVPUSH SCH (10:00)
[2024-11-10] MEDS: FUROSEMIDE 40 MG/4 ML INJECTABLE VIAL IVPUSH ONE (10:00)
[2024-11-10] MEDS: PEG 3350/NA SULF BICARB CL/KCL 4000 ML SOLN.RECON PO ONE (13:02)
[2024-11-10 21:27] LABS: Reticulocyte % 4.11 % (0.5-1.7)
[2024-11-10 21:53] LABS: BLOOD UREA NITROGEN 7.4 mg/dL (7-18); CALCIUM 8.9 mg/dL (8.5-10.1); POTASSIUM 3.1 mmol/L (3.5-5.1)
[2024-11-10 21:54] LABS: CREATININE 0.4 mg/dL (0.55-1.3)
[2024-11-11 08:16] LABS: INR 1.16 (0.83-1.09); PROTHROMBIN TIME (PATIENT) 12.6 SEC (9.7-13.0)
[2024-11-11 08:32] LABS: POTASSIUM 3.3 mmol/L (3.5-5.1)
[2024-11-11 08:49] LABS: ALBUMIN 2.1 g/dl (3.4-5.0); CALCIUM 8.5 mg/dL (8.5-10.1)
[2024-11-11 08:53] LABS: CREATININE 0.3 mg/dL (0.55-1.3)
[2024-11-11 08:54] LABS: BILIRUBIN,TOTAL 0.7 mg/dL (0.2-1); TOT PROT 4.8 g/dl (6.4-8.2)
[2024-11-11] MEDS: KCL 10 MEQ IVPB 10 MEQ/100 ML INFUS.BAG IVPB SCH (10:53)
[2024-11-11 11:09] LABS: HEMATOCRIT 36.1 % (34.1-44.9); HEMOGLOBIN 11.6 g/dL (11.2-15.7); MCHC 32.1 g/dl (32.2-35.5); MEAN CELL VOLUME 84.3 fl (79.4-94.8); MEAN PLT VOLUME 9.9 fl (9.4-12.3); PLATELET COUNT 286 x10^3/uL (182-369); RDW 16.9 % (12.4-16.6)
[2024-11-11] MEDS: POTASSIUM CHLORIDE TABS 20 MEQ TABLET.ER (FP) PO ONE (21:46)
[2024-11-12 09:05] LABS: ABSOLUTE IMMATURE GRANULOCYTES 0.03 x10^3/uL (0.0-0.031); EOSINOPHIL % 1.7 % (0.7-5.8); EOSINOPHILS # 0.09 x10^3/uL (0.04-0.36); HEMATOCRIT 35.3 % (34.1-44.9); HEMOGLOBIN 11.1 g/dL (11.2-15.7); MCHC 31.4 g/dl (32.2-35.5); MEAN CELL VOLUME 85.7 fl (79.4-94.8); MONOCYTE # 0.55 x10^3/uL (0.24-0.86); MONOCYTE % 10.2 % (4.7-12.5); PLATELET COUNT 227 x10^3/uL (182-369); RDW 16.8 % (12.4-16.6)
[2024-11-12 09:38] LABS: POTASSIUM 4.1 mmol/L (3.5-5.1)
[2024-11-12 09:41] LABS: BLOOD UREA NITROGEN 4.1 mg/dL (7-18)
[2024-11-12 09:44] LABS: CREATININE 0.4 mg/dL (0.55-1.3)
[2024-11-12] MEDS: PANTOPRAZOLE 40 MG TABLET PO SCH (21:50)
[2024-11-13 01:42] VITALS: TEMP 96
[2024-11-13 06:20] VITALS: RESP 20
[2024-11-13 11:09] VITALS: BP 130/88; PULSE 91
== END 2024-11-13 14:15 | DRG 812 ==
LOC: JER 01:59 → JERBED 03:20 → OBSVTOIN 08:20 → J4W 08:43
PROVIDERS: ADMIT Internal Medicine; ATTEND Internal Medicine
PROC: 30233N1 Transfusion of Nonautologous Red Blood Cells into Peripheral Vein, Percutaneous Approach (ICD-10-PCS; 2024-11-09)
PROC: 0DB58ZX Excision of Esophagus, Via Natural or Artificial Opening Endoscopic, Diagnostic (ICD-10-PCS; 2024-11-12)
PROC: 0DJD8ZZ Inspection of Lower Intestinal Tract, Via Natural or Artificial Opening Endoscopic (ICD-10-PCS; principal; 2024-11-12 10:30)
DX: D64.9 Anemia, unspecified (principal); K22.10 Ulcer of esophagus without bleeding; I27.20 Pulmonary hypertension, unspecified; J45.909 Unspecified asthma, uncomplicated; K21.9 Gastro-esophageal reflux disease without esophagitis; I11.0 Hypertensive heart disease with heart failure; I50.9 Heart failure, unspecified; K44.9 Diaphragmatic hernia without obstruction or gangrene
CPT/HCPCS: 36415; 36430; 71045-TC-FY; 80048; 80053; 82272; 83010; 83615; 84443; 85025; 85027; 85610; 86850; 86900; 86901; 86922; 88305-TC; 88312-TC; 88342-TC; 93005; 93010; 94640; 99285-25; G0378; P9058

== ENCOUNTER 2025-04-29 06:24 | Day surgery (SDC) | payer BC, OTHER ==
[2025-04-29 09:21] VITALS: BMI 18.1
[2025-04-29] MEDS ORDERED: LIDOCAINE VISCOUS 2% ORAL/TOP 15 ML UNIT-DOSE CUP ONE (09:37)
[2025-04-29 10:47] VITALS: BP 145/80; PULSE 69; RESP 20; TEMP 97.6
== END 2025-04-29 12:04 | disposition home or self-care (01) ==
LOC: JASU-ENDO 06:24
PROVIDERS: ATTEND Internal Medicine Gastroenterology
PROC: 0DJ08ZZ Inspection of Upper Intestinal Tract, Via Natural or Artificial Opening Endoscopic (ICD-10-PCS; principal; 2025-04-29 09:30)
DX: K22.2 Esophageal obstruction (principal); K44.9 Diaphragmatic hernia without obstruction or gangrene